=== PATIENT | female | born 1975 | race Caucasian/White ===

== ENCOUNTER → 2017-03-10 | Outpatient (CLI) | payer OTHER ==
[~2017-03-10] MED LIST: CYAN100T PO; FOLI1TAB7 PO; METF-383 PO; PYRI100T4 PO
== END | disposition home or self-care (01) ==
LOC: C.PAPS 16:20
PROVIDERS: ATTEND Obstetrics & Gynecology
DX: Z01.419 Encounter for gynecological examination (general) (routine) without abnormal findings (principal)